=== PATIENT | male | born 1945 | race Caucasian/White ===

== ENCOUNTER → 2016-12-21 | Outpatient (CLI) | payer BC ==
[2015-06-24 11:00] VITALS: BP 137/87
[~2016-12-21] MED LIST: AMIO200T2 PO; AMLO10TA4 PO; ASPI-630 PO; CYAN25003 SL; DABI150C PO; LISI10TA2 PO; LISI30TA4 PO; METO25TA4 PO
--- NOTE | 2016-12-21 15:02 | CARD ---
APPROVED REPORT EXAM: Two-dimensional and M-mode echocardiogram with Doppler and color Doppler. Other Information Quality : GoodHR: 54bpm Rhythm : Bradycardia INDICATION Non ischemic cardiomyopathy, SSS RISK FACTORS Hypertension Family History 2D DIMENSIONS RVDd3.3 (2.9-3.5cm)Left Atrium(2D)4.4 (1.6-4.0cm) IVSd1.2 (0.7-1.1cm)Aortic Root(2D)3.2 (2.0-3.7cm) LVDd4.6 (3.9-5.9cm)LVOT Diameter2.3 (1.8-2.4cm) PWd1.2 (0.7-1.1cm)LVDs3.4 (2.5-4.0cm) FS (%) 26.8 %SV51.8 ml LVEF(%)52.4 (>50%) Aortic Valve AoV Peak Beto.124.1cm/sAoV VTI28.9cm AO Peak GR.6.2mmHgLVOT Peak Beto.96.4cm/s AO Mean GR.3mmHgAVA (VMAX)3.26cm2 Mitral Valve MV E Gpbegsva27.3cm/sMV E Peak Gr.2mmHg MV DECEL BASV474suIH A Xmbsoiaw52.2cm/s MV E Mean Gr.1mmHgE/A Ratio2.2 MV A Dwejsmfp133wj Pulmonary Valve PV Peak Wlnxfpfr721.4cm/s Tricuspid Valve TR P. Kkwmetpk264yk/sTR Peak Gr.28mmHg Pulmonary Vein S1 Cvkyorcw48.3cm/sD2 Xndjxryz80.3cm/s PVa hqbhotep95vxhl LEFT VENTRICLE The left ventricle is normal size. There is mild concentric left ventricular hypertrophy. The left ve ntricular systolic function is normal and the ejection fraction is within normal range. The Ejection Fraction is 50-55%. There is normal LV segmental wall motion. Tissue Doppler imaging reveals moderate left ventricular diastolic dysfunction. RIGHT VENTRICLE The right ventricle is normal size. There is normal right ventricular wall thickness. The right ventr icular systolic function is normal. There is a pacemaker lead in the right ventricle. ATRIA The left atrium size is normal. The right atrium size is normal. The interatrial septum is intact wit h no evidence for an atrial septal defect or patent foramen ovale as noted on 2-D or Doppler imaging. AORTIC VALVE The aortic valve is mildly sclerotic. The aortic valve is trileaflet. Doppler and Color Flow revealed no significant aortic regurgitation. There is no significant aortic valvular stenosis. MITRAL VALVE The mitral valve leaflets are mildly thickened. There is no evidence of mitral valve prolapse. There is no mitral valve stenosis. Doppler and Color Flow revealed no mitral valve regurgitation noted. TRICUSPID VALVE Doppler and Color Flow revealed mild tricuspid regurgitation. The pulmonary artery systolic pressure is estimated at 31 mmHg. There is mild pulmonary hypertension. PULMONIC VALVE The pulmonic valve is not well visualized but appears to open adequately. Doppler and Color Flow reve aled trace pulmonic valvular regurgitation. There is no pulmonic valvular stenosis by spectral Dopple r. GREAT VESSELS The aortic root is normal in size. The ascending aorta is normal in size. The pulmonary artery is nor mal. The IVC is normal in size and collapses >50% with inspiration. PERICARDIAL EFFUSION There is no evidence of significant pericardial effusion. Critical Notification Critical Value: No <Conclusion> The left ventricular systolic function is normal and the ejection fraction is within normal range. Th e Ejection Fraction is 50-55%. There is normal LV segmental wall motion. There is a pacemaker lead in the right ventricle.
== END | disposition home or self-care (01) ==
LOC: ECHO 10:54
PROVIDERS: ATTEND Internal Medicine Cardiovascular Disease
DX: I36.1 Nonrheumatic tricuspid (valve) insufficiency (principal); I42.9 Cardiomyopathy, unspecified; I27.2 Other secondary pulmonary hypertension; I51.7 Cardiomegaly
CPT/HCPCS: 93306

== ENCOUNTER → 2018-02-07 | Outpatient (CLI) | payer BC ==
[2015-06-24 11:00] VITALS: BP 137/87
[~2018-02-07] MED LIST changes: -AMIO200T2 PO; +AMIO200T4 PO
--- NOTE | 2018-02-07 11:53 | CARD ---
MR#: [id number] Date of Study: 02/07/2018 Ordering Physician: ROBERT RAMIREZ, Referring Physician: ROBERT RAMIREZ, Tech: Cheryl Pollack [facility] APPROVED REPORT EXAM: Two-dimensional and M-mode echocardiogram with Doppler and color Doppler. Other Information Quality : GoodHR: 55bpm Rhythm : Bradycardia INDICATION Pacemaker Surgery/Intervention Pacemaker: 2D DIMENSIONS RVDd3.3 (2.9-3.5cm)Left Atrium(2D)4.0 (1.6-4.0cm) IVSd0.9 (0.7-1.1cm)Aortic Root(2D)3.3 (2.0-3.7cm) LVDd5.0 (3.9-5.9cm)LVOT Diameter2.1 (1.8-2.4cm) PWd1.1 (0.7-1.1cm)LVDs3.4 (2.5-4.0cm) FS (%) 31.3 %SV69.8 ml LVEF(%)58.8 (>50%) M-Mode DIMENSIONS Left Atrium(MM)3.89 (2.5-4.0cm)Aortic Root3.33 (2.2-3.7cm) Aortic Valve AoV Peak Beto.113.8cm/sAoV VTI26.1cm AO Peak GR.5.2mmHgLVOT Peak Beto.80.1cm/s AO Mean GR.3mmHgAVA (VMAX)2.37cm2 Mitral Valve MV E Otxlmqwa32.7cm/sMV E Peak Gr.1mmHg MV DECEL LDXY178pvAH A Zbhwodds26.0cm/s MV E Mean Gr.0mmHgE/A Ratio1.3 MV A Zmtseulm863jzLYN Planimetry2.10cm2 Pulmonary Valve PV Peak Qkuorkkw41.7cm/s Tricuspid Valve TR P. Kzvhlzqk674ya/sRAP TEJZTLPT1tqSz TR Peak Gr.69ixQjMBNK71udXe LEFT VENTRICLE The left ventricle is normal size. There is normal left ventricular wall thickness. The left ventricu lar systolic function is normal and the ejection fraction is within normal range. The Ejection Fracti on is 55-60%. There is normal LV segmental wall motion. The left ventricular diastolic function and f illing is normal for age. RIGHT VENTRICLE The right ventricle is normal size. There is normal right ventricular wall thickness. The right ventr icular systolic function is normal. There is a device lead in the right heart. ATRIA The left atrium is borderline dilated. The right atrium size is normal. The interatrial septum is int act with no evidence for an atrial septal defect or patent foramen ovale as noted on 2-D or Doppler i maging. AORTIC VALVE The aortic valve is thickened but opens well. The aortic valve is trileaflet. Doppler and Color Flow revealed trace aortic regurgitation. There is no significant aortic valvular stenosis. There is no ao rtic valvular vegetation. MITRAL VALVE The mitral valve is normal in structure and function. There is no evidence of mitral valve prolapse. There is no mitral valve stenosis. Doppler and Color-flow revealed trace mitral regurgitation. TRICUSPID VALVE The tricuspid valve is normal in structure and function. Doppler and Color Flow revealed mild tricusp id regurgitation. The PA pressure was estimated at 26 mmHg. There is no tricuspid valve prolapse or v egetation. There is no tricuspid valve stenosis. PULMONIC VALVE The pulmonary valve is normal in structure and function. Doppler and Color Flow revealed no pulmonic valvular regurgitation. There is no pulmonic valvular stenosis. GREAT VESSELS The aortic root is normal in size. The ascending aorta is normal in size. PERICARDIAL EFFUSION There is no evidence of significant pericardial effusion. Critical Notification Critical Value: No <Conclusion> The left ventricle is normal size. The left ventricular systolic function is normal and the ejection fraction is within normal range. The Ejection Fraction is 55-60%. There is a device lead in the right heart. There is no significant aortic valvular stenosis. Doppler and Color Flow revealed trace aortic regurgitation. Doppler and Color-flow revealed trace mitral regurgitation. Doppler and Color Flow revealed mild tricuspid regurgitation. The PA pressure was estimated at 26 mmHg. Signed by : Lance Castillo MD Electronically Approved : 02/07/2018 11:52:14
== END | disposition home or self-care (01) ==
LOC: ECHO 11:05
PROVIDERS: ATTEND Internal Medicine Cardiovascular Disease
DX: Z09 Encounter for follow-up examination after completed treatment for conditions other than malignant neoplasm (principal); I36.1 Nonrheumatic tricuspid (valve) insufficiency; I48.2 Chronic atrial fibrillation; Z95.0 Presence of cardiac pacemaker
CPT/HCPCS: 93306

== ENCOUNTER → 2018-09-08 | Outpatient (CLI) | payer OTHER ==
[2015-06-24 11:00] VITALS: BP 137/87
--- NOTE | 2018-09-08 14:07 | CARD ---
MR#: [id number] Date of Study: 09/08/2018 Ordering Physician: ROBERT RAMIREZ, Referring Physician: ROBERT RAMIREZ, Tech: Shazia Jaeger [facility] APPROVED REPORT EXAM: Two-dimensional and M-mode echocardiogram with Doppler and color Doppler. Other Information Quality : Good INDICATION Non-Ischemic Cardiomyopathy Surgery/Intervention Pacemaker: Date: 2011 2D DIMENSIONS RVDd2.7 (2.9-3.5cm)Left Atrium(2D)4.2 (1.6-4.0cm) IVSd1.1 (0.7-1.1cm)Aortic Root(2D)2.7 (2.0-3.7cm) LVDd4.9 (3.9-5.9cm)LVOT Diameter2.0 (1.8-2.4cm) PWd1.1 (0.7-1.1cm)LVDs3.6 (2.5-4.0cm) FS (%) 25.9 %SV57.9 ml LVEF(%)50.7 (>50%) Aortic Valve AoV Peak Beto.106.3cm/sAoV VTI21.3cm AO Peak GR.4.5mmHgLVOT Peak Beto.81.4cm/s LVOT VTI 16.45cmAO Mean GR.3mmHg ARUN (VMAX)2.49nm1ZPU (VTI)2.43cm2 Mitral Valve MV E Vgevrcvp43.2cm/sMV DECEL GTHA594fy MV UJL24bhPKD (PHT)4.25cm2 TDI E/Lateral E'18.9E/Medial E'16.7 Tricuspid Valve TR P. Pxeqczkh380fz/sRAP XKTXQANY6ufIv TR Peak Gr.35hlQtLZJB09tdNu Pulmonary Vein S1 Zztdieyb74.2cm/sD2 Czaeuxbx00.6cm/s LEFT VENTRICLE The left ventricle is normal size. There is normal left ventricular wall thickness. Left ventricle sy stolic function is low normal. The Ejection Fraction is 50%. Abnormal septal motion consistent with p acemaker activation. Transmitral Doppler flow pattern is Grade II-pseudonormal filling dynamics. RIGHT VENTRICLE The right ventricle is normal size. The right ventricular systolic function is normal. There is a pac emaker lead in the right ventricle. ATRIA The left atrium is mildly dilated. The right atrium size is normal. A pacemaker is seen in the right atrium consistent with history. The interatrial septum is intact with no evidence for an atrial septa l defect or patent foramen ovale as noted on 2-D or Doppler imaging. AORTIC VALVE The aortic valve is calcified but opens well. Doppler and Color Flow revealed no significant aortic r egurgitation. There is no significant aortic valvular stenosis. MITRAL VALVE The mitral valve is calcified but opens well. There is no evidence of mitral valve prolapse. There is no mitral valve stenosis. Doppler and Color-flow revealed trace mitral regurgitation. TRICUSPID VALVE The tricuspid valve is normal in structure and function. Doppler and Color Flow revealed trace tricus pid regurgitation. The PA pressure was estimated at 26 mmHg. There is no tricuspid valve stenosis. PULMONIC VALVE The pulmonic valve is not well visualized. Doppler and Color Flow revealed no pulmonic valvular regur gitation. There is no pulmonic valvular stenosis. GREAT VESSELS The aortic root is normal in size. The ascending aorta is mildly dilated at 3.5 cm. The IVC is normal in size and collapses >50% with inspiration. PERICARDIAL EFFUSION There is no evidence of significant pericardial effusion. Critical Notification Critical Value: No <Conclusion> Left ventricle systolic function is low normal. The Ejection Fraction is 50%. Abnormal septal motion consistent with pacemaker activation. Pacemaker lead noted in the right atrium and right ventricle. Trace mitral regurgitation. Trace tricuspid regurgitation. The PA pressure was estimated at 26 mmHg. There is no evidence of significant pericardial effusion. Signed by : Isrrael Lockhart, Electronically Approved : 09/08/2018 14:06:26
== END | disposition home or self-care (01) ==
LOC: ECHO 12:58
PROVIDERS: ATTEND Internal Medicine Cardiovascular Disease
DX: I08.0 Rheumatic disorders of both mitral and aortic valves (principal); I42.8 Other cardiomyopathies; Z95.0 Presence of cardiac pacemaker
CPT/HCPCS: 93306

== ENCOUNTER 2018-10-27 09:32 | Day surgery (SDC) | payer OTHER ==
[~2018-10-27 09:32] MED LIST changes: +HYDROmorphone 2 MG/ML VIAL IV PRN; +LIDOCAINE 1% PF 2 ML VIAL. ID PRN; +MORPHINE SULFATE 2 MG/ML VIAL. IV PRN; +ONDANSETRON PF 4 MG/2 ML VIAL. IV PRN; +PROCHLORPERAZINE 10 MG/2 ML VIAL. IV PRN; +fentaNYL PF VIAL 100 MCG/2 ML VIAL IV PRN
[2018-10-27] MEDS ORDERED: ePHEDrine PF IN SALINE 50 MG/10 ML SYRINGE. IV ONE (09:39)
[2018-10-27] MEDS ORDERED: PROPOFOL 20 ML IV ONE ×2 (09:39→10:28)
[2018-10-27] MEDS ORDERED: LIDOCAINE 2% PF 5 ML VIAL. ONE (09:39)
[2018-10-27] MEDS ORDERED: METO25TA4 PO (10:18)
[2018-10-27] MEDS ORDERED: MULT-690 PO (10:19)
[2018-10-27] MEDS: IV RINGERS,LACTATED 1000ML 1,000 ML IV SCH (10:33)
--- NOTE | 2018-10-27 11:27 | EKG ---
[facility] [address] [place] [address] Test Date: 2018-10-27 Test Time: 11:21:55 Pat Name: LUANN SEARS Department: Room: Gender: M Manager Clinical Research: YUDELKA : 1945 Requested By: ROBERT RAMIREZ Order Number: [id number] Reading MD: Measurements Intervals [place] Rate: 70 P: 47 ID: [id number] QRS: -79 QRSD: 192 T: 79 QT: 470 QTc: 511 Interpretive Statements SINUS RHYTHM ABNORMAL LEFT AXIS DEVIATION NON SPECIFIC INTRAVENTRICULAR BLOCK ABNORMAL ECG RI6.01 Unconfirmed report Compared to ECG 06/23/2015 22:06:42 Left-axis deviation now present Ventricular-paced complex(es) or rhythm no longer present
[2018-10-27 11:47] VITALS: BP 151/79
--- NOTE | 2018-10-28 19:41 | PDOC ---
Provider Note Provider Note CARDIOVERSION PROCEDURE NOTE: Late entry for 10/27/2018 Pleasant 73-year-old man coming into the hospital today for a planned cardioversion. He is had a high atrial fibrillation burden and is currently in atrial fibrillation despite medical therapy. Risks and benefits were discussed with the patient. Procedure details: After appropriate informed consent the patient was given deep anesthesia with propofol. See anesthesia note for full details. After appropriate sedation a synchronized cardioversion at 200 J was delivered externally and the patient converted to sinus rhythm. There were no acute complications. A pacemaker interrogation confirmed that the patient was in sinus rhythm. His mode was ch anged appropriately to DDD. No other acute issues. Patient was discharged in stable condition. ROBERT RAMIREZ MD Oct 28, 2018 19:41
== END 2018-10-27 11:48 | disposition home or self-care (01) ==
LOC: SURG 09:32
PROVIDERS: ATTEND Internal Medicine Cardiovascular Disease
DX: I48.91 Unspecified atrial fibrillation (principal)
CPT/HCPCS: 92960; 93005; J0171; J2001; J2704

== ENCOUNTER → 2019-02-09 | Outpatient (CLI) | payer OTHER ==
[~2019-02-09] MED LIST changes: +ASPI325T8 PO; +BENZOCAINE ONE 20% MUCOSAL SPRAY. MM; +IV RINGERS,LACTATED 1000ML 1,000 ML IV SCH; +LIDOCAINE 2% PF 5 ML VIAL. ONE; +LIDOCAINE 2% TOPICAL JELLY 5GM TUBE. TP ONE; +LIDOCAINE 2% VISCOUS 15 ML SOLUTION. SWSW ONE; +MULT-690 PO; +PROPOFOL 20 ML IV ONE
[2019-02-09 14:00] VITALS: BP 110/68
--- NOTE | 2019-02-10 09:20 | CARD ---
MR#: [id number] Date of Study: 02/09/2019 Ordering Physician: ROBERT RIOS, Referring Physician: ROBERT RIOS, Tech: Adele Hinton APPROVED REPORT EXAM: Transesophageal echocardiogram with color flow Doppler. INDICATION Thrombus Surgery/Intervention Pacemaker: Reason For Test : Rule out Intracardiac Thrombus. PROCEDURE After obtaining informed consent, patient underwent transesophageal echo in the PACU. Type of Sedation : General Anesthesia Sedation was administered by Maldonado Campos CRNA. Sedation was achieved with Propofol 135 mg intravenously. Transesophageal probe was inserted and advanced into esophagus by Franky Rios MD. The BHUMI was performed without complications. Throughout the procedure, the blood pressure, pulse oximetry, cardiac rhythm, and rate were monitored . The patient tolerated the procedure without adverse effects. Recovery from general anesthesia was une ventful and vital signs were stable. LEFT VENTRICLE The left ventricle is normal size. There is normal left ventricular wall thickness. The left ventricu lar systolic function is low normal. The Ejection Fraction is 45-50%. Septal motion consistent with p acemaker function. Diastology not performed. RIGHT VENTRICLE The right ventricle is normal size. There is normal right ventricular wall thickness. The right ventr icular systolic function is normal. There is a pacemaker lead in the right ventricle. ATRIA The left atrium is borderline dilated. The right atrium size is normal in size. The interatrial septu m is intact with no evidence for an atrial septal defect or patent foramen ovale as noted on 2-D or D oppler imaging. There is no thrombus noted in the left atrial appendage. AORTIC VALVE The aortic valve is thickened but opens well. Doppler and Color Flow revealed trace aortic regurgitat ion. There is no significant aortic valvular stenosis. MITRAL VALVE The mitral valve is normal in structure and function. There is no evidence of mitral valve prolapse. There is no mitral valve stenosis. Doppler and Color-flow revealed trace mitral regurgitation. TRICUSPID VALVE The tricuspid valve is normal in structure and function. Doppler and Color Flow revealed no tricuspid valve regurgitation noted. There is no tricuspid valve stenosis. PULMONIC VALVE The pulmonary valve is normal in structure and function. Doppler and Color Flow revealed no pulmonic valvular regurgitation. There is no pulmonic valvular stenosis. GREAT VESSELS The aortic root is normal in size. The pacemaker lead seen in the SVC. PERICARDIAL EFFUSION There is no pleural effusion. Critical Notification Critical Value: No <Conclusion> The left ventricular systolic function is low normal. The Ejection Fraction is 45-50%. Septal motion consistent with pacemaker function. There is a pacemaker lead in the right ventricle. There is no thrombus noted in the left atrial appendage. Signed by : Robert Rios, Electronically Approved : 02/09/2019 14:02:12
--- NOTE | 2019-02-10 23:04 | PDOC ---
Provider Note Provider Note CARDIOLOGY H& P - LATE ENTRY FOR 02/09/2019 HPI: Pleasant 73 y.o male with NICM, PAF presenting for a preoperative BHUMI. No acute issues. Denies any chest pain, dyspnea, orthopnea or PND. Pmhx: NICM, PAF SOchx: . No alcohol, tob or illicit drug use. Examination Cardiology: GENERAL APPEARANCE: pleasant, NAD. HEENT: normocephalic, eyes normal, no stridor . CAROTID UPSTROKE: normal. JVD: flat. HEART SOUNDS: normal S1, S2, no S3 or S4, regular. MURMUR, CLICK, GALLOP: absent. LUNGS: clear. ABDOMEN: soft, no masses felt. EXTREMITIES: no leg edema. PERIPHERAL PULSES: Carotid: 2+, Radial: 2+, DP/PT: 1+. Assessments 1. NICM (nonischemic cardiomyopathy) - I42.8 (Primary), resolved 2. Cardiac pacemaker in situ - Z95.0 3. HTN (hypertension) - I10, well controlled. 4. PAF (paroxysmal atrial fibrillation) - I48.0 Treatment 1. PAF (paroxysmal atrial fibrillation) Notes: -Continue current medical therapy and anticoagulation. He will follow-up with the EP for consideration of ablation versus other antiarrhythmics then amiodarone. ROBERT RAMIREZ MD Feb 10, 2019 23:04
== END | disposition home or self-care (01) ==
LOC: ECHO 10:21
PROVIDERS: ATTEND Internal Medicine Cardiovascular Disease
DX: I48.0 Paroxysmal atrial fibrillation (principal); I10 Essential (primary) hypertension; Z95.0 Presence of cardiac pacemaker; I31.3 Pericardial effusion (noninflammatory)
CPT/HCPCS: 93312; 93320; 93325; J2001; J2704; J7120

== ENCOUNTER 2019-03-02 10:59 | Day surgery (SDC) | payer OTHER ==
[~2019-03-02 10:59] MED LIST changes: -BENZOCAINE ONE 20% MUCOSAL SPRAY. MM; -HYDROmorphone 2 MG/ML VIAL IV PRN; -LIDOCAINE 1% PF 2 ML VIAL. ID PRN; -LIDOCAINE 2% PF 5 ML VIAL. ONE; -LIDOCAINE 2% TOPICAL JELLY 5GM TUBE. TP ONE; -LIDOCAINE 2% VISCOUS 15 ML SOLUTION. SWSW ONE; -MORPHINE SULFATE 2 MG/ML VIAL. IV PRN; -ONDANSETRON PF 4 MG/2 ML VIAL. IV PRN; -PROCHLORPERAZINE 10 MG/2 ML VIAL. IV PRN; -PROPOFOL 20 ML IV ONE; -fentaNYL PF VIAL 100 MCG/2 ML VIAL IV PRN
[2019-03-02] MEDS ORDERED: PROPOFOL 20 ML IV ONE (11:44)
--- NOTE | 2019-03-02 11:50 | EKG ---
[facility] [address] [place] [address] Test Date: 2019-03-02 Test Time: 11:39:26 Pat Name: LUANN SEARS Department: Room: Gender: M [employer] Cl[employer]: TV : 1945 Requested By: ROBERT RAMIREZ Order Number: [id number] Reading MD: Robert Ramirez MD Measurements Intervals [place] Rate: 70 P: [place]: QRS: -74 QRSD: 188 T: 89 QT: 450 QTc: 489 Interpretive Statements V-PACED RHYTHM Electronically Signed On 03-10-2019 15:40:43 CDT by Robert Ramirez MD
[2019-03-02 11:58] LABS: BASO % 1 % (0-3); EOS # 0.1 x10^3/uL (0.0-0.7); EOS % 1 % (0-3); HEMATOCRIT 44.2 % (39.0-53.0); LYMPH # 1.8 x10^3/uL (1.0-4.8); LYMPH % 30 % (24-48); MEAN CORPUSCULAR HEMOGLOBIN 32 pg (25-35); MEAN CORPUSCULAR HGB CONC 34 g/dL (31-37); MEAN CORPUSCULAR VOLUME 95 fL (79-100); MONO # 0.6 x10^3/uL (0.0-1.1); MONO % 10 % (0-9); NEUT # 3.6 x10^3/uL (1.8-7.7); NEUT % 59 % (31-73); PLATELET COUNT 212 x10^3/uL (140-400); RED BLOOD COUNT 4.66 x10^6/uL (4.30-5.70); RED CELL DISTRIBUTION WIDTH 13.5 % (11.5-14.5); WHITE BLOOD COUNT 6.1 x10^3/uL (4.0-11.0)
[2019-03-02 12:11] LABS: PROTHROMBIN TIME PATIENT 15.3 SEC (11.7-14.0)
[2019-03-02 12:15] LABS: CREATININE 1.3 mg/dL (0.7-1.3); GFR 54.1; MAGNESIUM 2.2 mg/dL (1.8-2.4); POTASSIUM 4.6 mmol/L (3.5-5.1)
--- NOTE | 2019-03-02 12:58 | EKG ---
[facility] [address] [place] [address] Test Date: 2019-03-02 Test Time: 12:48:41 Pat Name: LUANN SEARS Department: Room: Gender: Pet Care Technician: : 1945 Requested By: ROBERT RAMIREZ Order Number: [id number] Reading MD: Robert Ramirez MD Measurements Intervals [place] Rate: 70 P: 64 TN: 158 QRS: -83 QRSD: 190 T: 83 QT: 464 QTc: 504 Interpretive Statements A-V PACED Electronically Signed On 03-10-2019 15:41:15 CDT by Robert Ramirez MD
[2019-03-02 13:15] VITALS: BP 135/91
--- NOTE | 2019-03-09 09:08 | PDOC4 ---
PROCEDURE Procedure PROCEDURE: DC cardioversion Indication: Recurrent atrial fibrillation after ablation therapy Procedure details: After appropriate informed consent the patient was sedated using propofol. See anesthesia report for full details. After adequate anesthesia the patient was converted to SR with a synchronized 200 J shock. The patient previously had been on anticoagulation with Pradaxa. SR was confirmed with device interrogation. No acute complications noted. Late entry for 03/02/2019 ROBERT RAMIREZ MD Mar 09, 2019 09:08
== END 2019-03-02 13:40 | disposition home or self-care (01) ==
LOC: SURG 10:59
PROVIDERS: ATTEND Internal Medicine Cardiovascular Disease
DX: I48.91 Unspecified atrial fibrillation (principal); I11.9 Hypertensive heart disease without heart failure; Z95.0 Presence of cardiac pacemaker; Z86.73 Personal history of transient ischemic attack (TIA), and cerebral infarction without residual deficits; Z86.010 Personal history of colon polyps; Z72.89 Other problems related to lifestyle; Z98.890 Other specified postprocedural states; Z85.828 Personal history of other malignant neoplasm of skin
CPT/HCPCS: 36415; 80048; 83735; 85025; 85610; 92960; 93005; J2704

== ENCOUNTER → 2019-11-03 | Outpatient (CLI) | payer MEDICARE ==
[~2019-11-03] MED LIST changes: -IV RINGERS,LACTATED 1000ML 1,000 ML IV SCH
[2019-11-03 11:14] LABS: BASO # 0.1 x10^3/uL (0.0-0.2); BASO % 1 % (0-3); EOS # 0.1 x10^3/uL (0.0-0.7); EOS % 2 % (0-3); HEMATOCRIT 43.5 % (39.0-53.0); HEMOGLOBIN 14.9 g/dL (13.0-17.5); LYMPH # 2.1 x10^3/uL (1.0-4.8); LYMPH % 36 % (24-48); MEAN CORPUSCULAR HEMOGLOBIN 32 pg (25-35); MEAN CORPUSCULAR HGB CONC 34 g/dL (31-37); MEAN CORPUSCULAR VOLUME 94 fL (79-100); MONO # 0.6 x10^3/uL (0.0-1.1); MONO % 10 % (0-9); NEUT % 52 % (31-73); PLATELET COUNT 214 x10^3/uL (140-400); RED BLOOD COUNT 4.66 x10^6/uL (4.30-5.70); RED CELL DISTRIBUTION WIDTH 13.6 % (11.5-14.5); WHITE BLOOD COUNT 5.7 x10^3/uL (4.0-11.0)
[2019-11-03 11:33] LABS: ALBUMIN 3.4 g/dL (3.4-5.0); CREATININE 1.3 mg/dL (0.7-1.3); POTASSIUM 4.4 mmol/L (3.5-5.1); TOTAL BILIRUBIN 0.4 mg/dL (0.2-1.0); TOTAL PROTEIN 6.7 g/dL (6.4-8.2)
--- NOTE | 2019-11-03 14:14 | CARD ---
MR#: [id number] Date of Study: 11/03/2019 Ordering Physician: ROBERT RAMIREZ, Referring Physician: ROBERT RAMIREZ, Tech: Adele Hinton APPROVED REPORT EXAM: Two-dimensional and M-mode echocardiogram with Doppler and color Doppler. Other Information Quality : FairHR: 70bpm INDICATION Cardiomyopathy Surgery/Intervention Pacemaker: Date: 2010 RISK FACTORS Hypertension 2D DIMENSIONS RVDd3.0 (2.9-3.5cm)Left Atrium(2D)3.2 (1.6-4.0cm) IVSd1.2 (0.7-1.1cm)Aortic Root(2D)3.3 (2.0-3.7cm) LVDd4.4 (3.9-5.9cm)LVOT Diameter2.1 (1.8-2.4cm) PWd1.0 (0.7-1.1cm)LVDs2.2 (2.5-4.0cm) FS (%) 50.9 %SV73.4 ml Aortic Valve AoV Peak Beto.104.5cm/sAoV VTI19.1cm AO Peak GR.4.4mmHgLVOT Peak Beto.68.1cm/s LVOT VTI 13.33cmAO Mean GR.3mmHg ARUN (VMAX)1.31ud1SCW (VTI)2.51cm2 Mitral Valve MV E Nohembsj69.6cm/sMV DECEL NSXN931bt MV A Vvfmqncm12.0cm/sMV E Mean Gr.1mmHg MV KMF35ouB/A Ratio2.0 MVA (PHT)4.61cm2 TDI E/Lateral E'6.0E/Medial E'7.5 Pulmonary Valve PV Peak Fhpwgxpf84.8cm/sPV Peak Grad.4mmHg Tricuspid Valve TR P. Iithpajj774mo/sRAP IJOAPYHO4cvHc TR Peak Gr.69brBzOEYO57rpGe LEFT VENTRICLE The left ventricle is normal size. There is borderline to mild concentric left ventricular hypertroph y. The left ventricular systolic function is low normal. The Ejection Fraction is 50%. Septal motion consistent with pacemaker activation. Transmitral Doppler flow pattern is Grade II-pseudonormal filli ng dynamics. RIGHT VENTRICLE The right ventricle is normal size. There is normal right ventricular wall thickness. The right ventr icular systolic function is normal. ATRIA The left atrium size is normal. The right atrium size is normal. The interatrial septum is intact wit h no evidence for an atrial septal defect or patent foramen ovale as noted on 2-D or Doppler imaging. AORTIC VALVE The aortic valve is normal in structure and function. Doppler and Color Flow revealed trace aortic re gurgitation. There is no significant aortic valvular stenosis. MITRAL VALVE The mitral valve is normal in structure and function. There is no evidence of mitral valve prolapse. There is no mitral valve stenosis. Doppler and Color-flow revealed trace mitral regurgitation. TRICUSPID VALVE The tricuspid valve is normal in structure and function. Doppler and Color Flow revealed trace tricus pid regurgitation with an estimated PAP of 26 mmHg. There is no tricuspid valve stenosis. PULMONIC VALVE The pulmonic valve is not well visualized. Doppler and Color Flow revealed trace pulmonic valvular re gurgitation. GREAT VESSELS The aortic root is normal in size. The IVC is normal in size and collapses >50% with inspiration. PERICARDIAL EFFUSION There is no evidence of significant pericardial effusion. Critical Notification Critical Value: No <Conclusion> The left ventricular systolic function is low normal. The Ejection Fraction is 50%. Septal motion consistent with pacemaker activation. Pacer wire noted RA/RV. Trace mitral regurgitation. Trace tricuspid regurgitation with an estimated PAP of 26 mmHg. There is no evidence of significant pericardial effusion. Signed by : Isrrael Lockhart, Electronically Approved : 11/03/2019 14:14:03
== END | disposition home or self-care (01) ==
LOC: ECHO 10:29
PROVIDERS: ATTEND Internal Medicine Cardiovascular Disease
DX: I42.8 Other cardiomyopathies (principal); I11.9 Hypertensive heart disease without heart failure
CPT/HCPCS: 36415; 80053; 83880; 85025; 93306

== ENCOUNTER → 2021-05-19 | Outpatient (CLI) | payer MEDICARE ==
[~2021-05-19] MED LIST changes: -AMIO200T4 PO; +AMIO200T53 PO; +LISI10TA16 PO; -LISI10TA2 PO
--- NOTE | 2021-05-19 13:44 | CARD ---
MR#: [id number] Date of Study: 05/19/2021 Ordering Physician: ROBERT RAMIREZ, Referring Physician: ROBETR RAMIREZ, Tech: Lorenza Braxton [facility] APPROVED REPORT EXAM: Two-dimensional and M-mode echocardiogram with Doppler and color Doppler. Other Information Quality : Technically LimitedHR: 65bpm Rhythm : NSR INDICATION Dyspnea Surgery/Intervention ICD/Pacemaker: RISK FACTORS Hypertension 2D DIMENSIONS Left Atrium(2D)4.8 (1.6-4.0cm)IVSd1.0 (0.7-1.1cm) Aortic Root(2D)3.5 (2.0-3.7cm)LVDd4.3 (3.9-5.9cm) LVOT Diameter2.0 (1.8-2.4cm)PWd1.2 (0.7-1.1cm) LVDs2.5 (2.5-4.0cm)FS (%) 43.3 % SV63.1 mlLVEF(%)74.7 (>50%) Aortic Valve AoV Peak Beto.106.8cm/sAoV VTI18.3cm AO Peak GR.4.6mmHgLVOT Peak Beto.82.1cm/s AO Mean GR.2mmHgAVA (VMAX)2.44cm2 Mitral Valve MV E Qvfhggar07.0cm/sMV DECEL UPWW623dt MV A Ccijznvp38.4cm/sE/A Ratio3.2 Pulmonary Valve PV Peak Rzcijhol41.2cm/s Tricuspid Valve TR P. Dlbhhdls026nv/sTR Peak Gr.27mmHg LEFT VENTRICLE The left ventricle is normal size. There is borderline concentric left ventricular hypertrophy. The l eft ventricular systolic function is normal. Estimated ejection fraction 50-55%. There is normal LV segmental wall motion. Tissue Doppler imaging reveals moderate left ventricular diastolic dysfunction . RIGHT VENTRICLE The right ventricle is normal size. There is normal right ventricular wall thickness. The right ventr icular systolic function is normal. ATRIA The left atrium size is normal. The right atrium size is normal. The interatrial septum is intact wit h no evidence for an atrial septal defect or patent foramen ovale as noted on 2-D or Doppler imaging. AORTIC VALVE The aortic valve is normal in structure and function. Doppler and Color Flow revealed trace to mild a ortic regurgitation. There is no significant aortic valvular stenosis. MITRAL VALVE The mitral valve is normal in structure and function. There is no evidence of mitral valve prolapse. There is no mitral valve stenosis. Doppler and Color-flow revealed mild mitral regurgitation. TRICUSPID VALVE The tricuspid valve is normal in structure and function. Doppler and Color Flow revealed mild tricusp id regurgitation. There is no tricuspid valve stenosis. PULMONIC VALVE The pulmonary valve is normal in structure and function. Doppler and Color Flow revealed trace pulmon ic valvular regurgitation. GREAT VESSELS The aortic root is normal in size. The ascending aorta is normal in size. The IVC is normal in size a nd collapses >50% with inspiration. PERICARDIAL EFFUSION There is no evidence of significant pericardial effusion. Critical Notification Critical Value: No <Conclusion> The left ventricular systolic function is normal. Estimated ejection fraction 50-55%. There is normal LV segmental wall motion. Pacer wire noted RA/RV. Mild mitral regurgitation. Mild tricuspid regurgitation. There is no evidence of significant pericardial effusion. Signed by : Isrrael Lockhart, Electronically Approved : 05/19/2021 13:43:27
== END ==
LOC: ECHO 10:47
PROVIDERS: ATTEND Internal Medicine Cardiovascular Disease
DX: I08.3 Combined rheumatic disorders of mitral, aortic and tricuspid valves (principal); I42.8 Other cardiomyopathies; R06.00 Dyspnea, unspecified
CPT/HCPCS: 93306